=== PATIENT | female | born 1985 | race African-American/Black ===

== ENCOUNTER 2016-10-14 18:54 | Emergency (ER) | payer OTHER ==
[2016-10-14 17:47] LABS: BASOPHIL# 0.1 X10e3 (0-0.3); BASOPHIL% 0.9 % (0-2.5); EOSINOPHIL# 0.1 X10e3 (0-0.7); EOSINOPHIL% 1.6 % (0.0-7.0); HEMATOCRIT 29.7 % (35.0-45.0); HEMOGLOBIN 9.3 gm/dL (12.0-16.0); LYMPHOCYTE# 2.2 X10e3 (1.0-3.5); LYMPHOCYTE% 23.4 % (17.0-45.0); MEAN CELL VOLUME 68.6 FL (83-96); MEAN CORPUSCULAR HEMOGLOBIN 21.4 PG (28-34); MEAN CORPUSCULAR HGB CONC 31.1 g/dL (30-36); MEAN PLATELET VOLUME 10.8 FL (6.5-11.5); MONOCYTE# 0.6 X10e3 (0-1.0); MONOCYTE% 6.4 % (3.0-12.0); NEUTROPHIL# 6.4 X10e3 (1.5-7.1); NEUTROPHIL% 67.7 % (40-75); PLATELET COUNT 185 X10e3 (140-420); RED BLOOD COUNT 4.33 X10e (3.90-5.30); RED CELL DISTRIBUTION WIDTH 23.3 % (11.0-15.5); RETICULOCYTE 1.9 % (0.5-2.8); WHITE BLOOD COUNT 9.5 X10e3 (4.0-10.5)
[2016-10-14 17:48] LABS: DIFF IND YES
[2016-10-14 18:23] LABS: HYPOCHROMIA MOD; PLATELET ESTIMATE NORMAL (NORMAL); POLYCHROMASIA SL
[2016-10-14 18:24] LABS: ACANTHOCYTES PRESENT; MICROCYTOSIS MOD; POIKILOCYTOSIS MOD; STOMATOCYTE PRESENT; TARGET CELLS MOD
[2016-10-14 18:28] LABS: SCHISTOCYTES PRESENT; SPHEROCYTE MOD
[2016-10-14 18:29] LABS: BURR CELLS PRESENT
[~2016-10-14 18:54] MED LIST: ALDOMET250 MG; ATENOLOL PO; FERROUS SULFATE PO; VALTREX PO; [UNRECOGNIZED DRUG - OTHER]
== END 2016-10-14 19:11 | disposition left against medical advice (07) ==
LOC: CED 18:54
PROVIDERS: Emergency Medicine
DX: D50.9 Iron deficiency anemia, unspecified (principal); I10 Essential (primary) hypertension; M54.9 Dorsalgia, unspecified; F17.210 Nicotine dependence, cigarettes, uncomplicated; Z98.51 Tubal ligation status
CPT/HCPCS: 36415; 85025; 85044; 99283